=== PATIENT | male | born 1970 | race Hispanic/Latino ===

== ENCOUNTER 2018-01-12 10:04 | Emergency (ER) | payer OTHER, SELFPAY ==
[2018-01-12 10:14] VITALS: RESP 18
--- NOTE | 2018-01-12 11:06 | RAD ---
Left ankle three views History: fracture. Comparison: None available. Findings: Transverse oblique comminuted fracture deformity of the distal fibula with distraction at the fracture site. Question mild widening of the medial and lateral ankle mortise up to 4 millimeters. Prominent medial and lateral malleolar soft tissue swelling. Impression: Transverse oblique comminuted fracture deformity of the distal fibula with distraction at the fracture site. Question mild widening of the medial and lateral ankle mortise up to 4 millimeters. Prominent medial and lateral malleolar soft tissue swelling.
--- NOTE | 2018-01-12 11:17 | C.PDOC ---
History Of Present Illness 47 year old male presents to the emergency department with complaints of swelling to the left ankle after he fell and twisted his ankle (outwards) yesterday while roller skating. Patient states that his ankle appeared to be out of place, and he "popped back in". Patient denies other injuries, sensory changes. Time Seen by Provider: 01/12/18 10:15 Chief Complaint (Nursing): Lower Extremity Problem/Injury History Per: Patient History/Exam Limitations: no limitations Onset/Duration Of Symptoms: Days (1) Current Symptoms Are (Timing): Still Present Severity: Moderate - Ankle/Foot Description Of Injury: Twisted Past Medical History Reviewed: Historical Data, Nursing Documentation, Vital Signs Vital Signs: Last Vital Signs Temp 98.9 F 01/12/18 11:36 Pulse 78 01/12/18 11:36 Resp 18 01/12/18 11:36 BP 125/73 01/12/18 11:36 Pulse Ox 98 01/12/18 12:52 - Medical History PMH: No Chronic Diseases Surgical History: No Surg Hx Family History: States: No Known Family Hx - Social History Hx Alcohol Use: Yes Hx Substance Use: No - Immunization History Hx Tetanus Toxoid Vaccination: No Hx Influenza Vaccination: No Hx Pneumococcal Vaccination: No Review Of Systems Constitutional: Negative for: Fever Musculoskeletal: Positive for: Foot Pain (left ankle swelling and pain) Skin: Negative for: Rash Neurological: Negative for: Weakness, Numbness Physical Exam - Physical Exam Appears: Well, Non-toxic, No Acute Distress Skin: Normal Color, Warm, Dry, No Rash Head: Normacephalic Cardiovascular: Rhythm Regular Respiratory: Normal Breath Sounds, No Rales, No Rhonchi, No Wheezing Extremity: Tenderness (tenderness to palpation at medial malleolus of the left ankle ), No Calf Tenderness, Capillary Refill (< 2 seconds all digits ), Swelling (moderate swelling of left ankle), Other (2cm abrasion on the anterior aspect of the left ankle) Pulses: Left Dorsalis Pedis: Normal, Right Dorsalis Pedis: Normal Neurological/Psych: Oriented x3, Normal Sensation ED Course And Treatment O2 Sat by Pulse Oximetry: 98 (RA) Pulse Ox Interpretation: Normal - Other Rad xray X-Ray: Viewed By Me (comminuted fx distal fibula) Progress Note: Xray of ankle ordered and reviewed - showed comminuted disyal fibula fx. Patient placed in posterior ankle splint by firestopper technician and checked by me, (+) NV Intact. Patient already had crutches on ED arrival. Patient instructed to follow up with orthopedics/podiatry within 1 week. He understands he should return to ED if symptoms worsen. Disposition Counseled Patient/Family Regarding: Studies Performed, Diagnosis, Need For Followup, Rx Given - Disposition Referrals: Podiatry Clinic [Outside] [facility] [Outside] Osmin Begum III, MD [Staff Provider] - Disposition: HOME/ ROUTINE Disposition Time: 11:15 Condition: STABLE Additional Instructions: FOLLOW UP WITH ORTHOPEDICS OR PODIATRY WITHIN 1 WEEK USE PAIN MEDICATION NEEDED RETURN TO EMERGENCY ROOM IF SYMPTOMS WORSEN SEGUIMIENTO CON ORTOPEDIA O PODOLOGA DENTRO DE 1 SEMANA USE MEDICAMENTO PARA DOLOR SEGN SEA NECESARIO REGRESE AL JAJA DE EMERGENCIA SI LOS SNTOMAS EMPEORAN Prescriptions: Acetaminophen with Codeine [Tylenol with Codeine #3 Tablet] 1 each PO Q6 PRN # 12 tablet PRN Reason: pain Instructions: Fibula Fracture (DC) Forms: [employer] (Omani) Print Language: BELARUSIAN - POA Present On Arrival: Falls Or Trauma - Clinical Impression Clinical Impression: Closed fracture of left distal fibula - Scribe Statement The provider has reviewed the documentation as recorded by the Scribe (Adarsh Rivero) Provider Attestation: All medical record entries made by the Scribe were at my direction and personally dictated by me. I have reviewed the chart and agree that the record accurately reflects my personal performance of the history, physical exam, medical decision making, and the department course for this patient. I have also personally directed, reviewed, and agree with the discharge instructions and disposition.
[2018-01-12 11:36] VITALS: BP 125/73; PULSE 78; TEMP 98.9
[2018-01-12 12:46] VITALS: O2SAT 98
== END 2018-01-12 11:50 | disposition home or self-care (01) ==
LOC: C.ER 10:04
DX: S82.832A Other fracture of upper and lower end of left fibula, initial encounter for closed fracture (principal); W18.30XA Fall on same level, unspecified, initial encounter; Y93.51 Activity, roller skating (inline) and skateboarding